=== PATIENT | female | born 1960 | race Caucasian/White ===

== ENCOUNTER 2018-11-22 07:00 | Inpatient (IN) ==
--- NOTE | 2018-11-15 14:29 | EKG Report ---
Test Performed on : 11/15/2018 2:08:26 PM Test Reason : PAT Blood Pressure : / mmHG Vent. Rate : 084 BPM Atrial Rate : 084 BPM P-R Int : 164 ms QRS Dur : 092 ms QT Int : 372 ms P-R-T Axes : 056 064 071 degrees QTc Int : 439 ms Normal sinus rhythm. Normal ECG No previous ECGs available Confirmed by Brock WADE, Denis ([id number]) on 11/16/2018 8:42:14 AM
[2018-11-15 14:35] LABS: BASO# 0.02 X1000 (0.0-0.2); BASO% 0.2 % (0.0-0.8); HEMOGLOBIN 14.7 g/dL (12.0-16.0); IMM GRAN# 0.02 X1000 (0.0-0.04); IMM GRAN% 0.2 % (0.0-0.5); LYMPH# 2.68 X1000 (1.2-3.4); LYMPH% 27.8 % (20.5-51.1); MCH 30.8 PG (27-31); MCHC 33.4 g/dL (33-37); MCV 92.2 FL (81-99); MONO% 7.3 % (1.7-9.3); NEUT# 6.22 X1000 (1.4-6.5); NEUT% 64.5 % (42.2-75.2); PLT 325 X1000 (130-400); RBC 4.77 XMIL (4.2-5.4); RDW 13.6 % (11.5-14.5); WBC 9.64 X1000 (4.8-10.8)
[2018-11-15 14:53] LABS: HEMOGLOBIN A1C 4.9 % (4.8-6.0)
[2018-11-15 15:03] LABS: AGAP 12; BUN 13 mg/dL (8-22); C REACTIVE PROT QUANT 10.31 mg/L (0.00-5.00); CALCIUM 9.4 mg/dL (8.8-10.2); CHLORIDE 99 mmol/L (98-107); COSMO 279; CREATININE 0.7 mg/dL (0.5-0.9); ESTIMATED GFR > 60; GLUCOSE 98 mg/dL (70-104); POTASSIUM 3.7 mmol/L (3.5-5.1); SODIUM 140 mmol/L (136-145); TCO2 29 mmol/L (25-35)
[2018-11-22] MEDS ORDERED: LR 1,000 ML ONE (09:10)
[2018-11-22] MEDS ORDERED: REGLAN ONE (09:10)
[2018-11-22] MEDS ORDERED: PEPCID ONE (09:10)
[2018-11-22] MEDS ORDERED: VANCOMYCIN 1 GM/NS 1 GM/250 ML IVPB ONE (09:10)
[2018-11-22] MEDS ORDERED: VERSED ONE (10:04)
[2018-11-22] MEDS ORDERED: XYLOCAINE-MPF 2% ONE (10:04)
[2018-11-22] MEDS ORDERED: FENTANYL ONE ×2 (10:05→12:51)
[2018-11-22] MEDS ORDERED: DIPRIVAN 1% ONE (10:05)
[2018-11-22] MEDS ORDERED: QUELICIN (DOSE) ONE (10:26)
[2018-11-22] MEDS ORDERED: NEURONTIN PO ONE (10:45)
[2018-11-22 11:52] LABS: AGAP 12; BUN 11 mg/dL (8-22); CALCIUM 8.7 mg/dL (8.8-10.2); CHLORIDE 103 mmol/L (98-107); COSMO 282; CREATININE 0.5 mg/dL (0.5-0.9); ESTIMATED GFR > 60; GLUCOSE 97 mg/dL (70-104); POTASSIUM 3.5 mmol/L (3.5-5.1); PREALBUMIN 24.4 mg/dL (20-40); SODIUM 142 mmol/L (136-145); TCO2 27 mmol/L (25-35)
[2018-11-22 11:53] LABS: TSH 2.62 uIUmL (0.27-4.20); VITAMIN D 25 HYDROXY 51.5 NG/DL
[2018-11-22] MEDS ORDERED: MORPHINE ONE (13:56)
[2018-11-22] MEDS ORDERED: SENOKOT PO PRN (14:34)
[2018-11-22] MEDS ORDERED: ZOFRAN IV PRN (14:34)
--- NOTE | 2018-11-22 16:15 | OPERATIVE NOTE ---
PROCEDURE DATE: 11/22/2018 POSTOPERATIVE DIAGNOSIS: 1. Left Charcot midfoot with forefoot abduction and pes planus deformity. 2. Left midfoot malunion from previous surgery. 3. Left equinus contracture. 4. Left hardware related pain. POSTOPERATIVE DIAGNOSES: 1. Left Charcot midfoot with forefoot abduction and pes planus deformity. 2. Left midfoot malunion from previous surgery. 3. Left equinus contracture. 4. Left hardware related pain. PROCEDURES: 1. Left hardware removal deep from the mid foot. 2. Left hardware removal deep from the great toe metatarsophalangeal joint. 3. Left partial excision mid tarsal bones. 4. Left multiple tarsal fusions with midfoot osteotomy. 5. Left tendo-Achilles lengthening. 6. Subtalar fusion. SURGEON: Serge Arana MD. PAINT ROLLER WINDER: NIRANJAN Last, who was an integral part of the case, helping with all aspects of the case, and helping to increase our OR efficiency greatly. ANESTHESIA: General with LMA. TOURNIQUET TIME: About 130 minutes. IMPLANTS: 1. [employer] beams. 2. [employer] augment. DISPOSITION: To PACU, hemodynamically stable. INDICATION FOR PROCEDURE: Ms. Arnold is a 58-year-old female, whom I have seen in the clinic for evaluation of this left foot. Unfortunately, she has had a malunion after a previous attempt to correct her Charcot midfoot deformity and now she was left in an abducted forefoot position and a pes planus position with a rocker bottom deformity in the sagittal plane. I discussed with her about operative intervention. She expressed understanding and wished to proceed. DESCRIPTION OF PROCEDURE: Ms. Arnold was identified in the preoperative holding area. The left foot was marked as the correct surgical site. She was then wheeled to the operating room and placed supine on the operating table. All bony prominences well padded. She was induced under general anesthesia. LMA was placed. Tourniquet was placed on the left leg. Left lower extremity was then prepped with chlorhexidine, gluconate scrub, and then ChloraPrep, draped in normal sterile fashion. Surgical pause was performed. We identified the correct patient, correct side, and the correct procedure. Preop antibiotics were given. Esmarch was used to exsanguinate the left lower extremity and tourniquet was inflated to 300 mmHg. We initially started with removing the hardware from the midfoot. I made an incision over the first TMT joint. Dissection was carried down. We dissected all the way down and then found the screw head and removed it with a screw telephone directory distributor driver. We did this actually with all 5 tarsometatarsal joints. We ended up having to make 5 incisions to take each 1 of them out, but we were able to get all of the hardware out of the midfoot so that we could correct her deformity. After this, I then made a medial incision over the medial and plantar deformity. Dissection was carried down all the way to bone. We elevated full-thickness soft tissue flaps dorsally and plantarly. There was a very large deformity that was there. We came proximally to the TN joint and distally passed the fused TMT joint. After we had made those large flaps, I then used some K- wires to get my initial position for my cut and that was in the transverse plane. I then made my cuts. It was a biplanar cut with the apex dorsal and apex lateral. After I completed the cut, I was able to get all of that bone out and it closed down very nicely and restored Meary's angle and also restored the neutral position of the forefoot. I then used a Hintermann distractor and prepared my talonavicular joint and then drilled it so we could get a good fusion there. We then came lateral and I made a sinus tarsi approach to the subtalar joint. I then denuded all of the cartilage off the subtalar joint and prepared it for fusion as well. So, we partially excised all that midfoot bone so that we could swing her foot around. We closed the osteotomy down so we could get multiple midfoot fusions across that area and restore her more anatomic plantigrade position. I did have to make an incision over the first MTP joint dorsally and removed several screws out of her dorsal plate and that was the hardware removal from the great toe. That allowed me to get position on that 1st metatarsal but we went plantarly since she was fused at the MTP joint and the IP joint of the great toe. Once I got a really good position with that pin, I was able to drive it into the talus and had really good position there. AP ankle showed that we did have enough room medially, we were not going to break out, and so that actually looked really good. After I got that position, we temporarily pinned it through the medial wound and then I drilled and put a solid beam of that 1 and that stabilized my medial column and got my overall position back. I then made a dorsal incision over the 2nd MTP joint, exposed that metatarsal head, and got it ready for guidewire. I realized that wire was going to go into the calcaneus and so I backed it up and at this point, I went ahead and got my guidewire in for my subtalar fusion. Fluoroscopic imaging showed it was in good position and Leigh heel view showed that we were in good position there as well. Then I used a 7.0 cannulated screw for my calcar subtalar fusion. After that, I was then able to drive that 2nd metatarsal guidewire all the way into the calcaneus and it went right at the sustentacular. I then put a solid beam in that one as well. I then came off the 3rd metatarsal laterally in the midfoot area, at 1 of the previous incisions we used to take out one of her midfoot screws, and then put another screw there. We did use a cannulated screw on that on. So overall, I felt our position looked really good. We got the multiple midfoot fusion. We partially excised some of the tarsal bones in the midfoot to close that down. We did our subtalar fusion, removed the hardware, and we got everything positioned just right. She was pretty tight in equinus and so through three stab incisions, I was able to do a tendo- Achilles lengthening and that got her position back, to get her back to neutral dorsiflexion. Overall I felt the foot was in a good position. It was not abducted and the area that was very prominent medially was not anymore. She did have a little bit of an arch. We had to put the tourniquet down in the middle of the case at 130 minutes. She had good blood flow return to the toes. We then closed everything with 0 Vicryl, 2-0 Vicryl for the subcutaneous, and jesus and sutures on the skin. Adaptic, 4 x 4s, ABD, soft roll, and posterior splint were applied. When the tourniquet was let down, like I said, she had good capillary refill to the toes. She was then awoke from general anesthesia, moved to her own bed, and taken to the PACU in stable condition. Postop she will be nonweightbearing to the left lower extremity. She will be admitted today and I will see her in the morning. cc: Serge Arana MD MTDD
[2018-11-22] MEDS ORDERED: ASTELIN NASAL SPRAY NAS SCH (18:28)
[2018-11-22] MEDS ORDERED: DULCOLAX PO PRN (18:28)
[2018-11-22] MEDS ORDERED: COMBIVENT RESPIMAT INHALER INH PRN (18:28)
[2018-11-22] MEDS ORDERED: EXCEDRIN MIGRAINE PO PRN (18:28)
[2018-11-22] MEDS ORDERED: NEURONTIN PO SCH (18:30)
[2018-11-22] MEDS: MORPHINE IV PRN (19:06)
[2018-11-22] MEDS: ELAVIL PO SCH (22:46)
[2018-11-22] MEDS: NUCYNTA PO SCH (22:46)
[2018-11-22] MEDS: PERIDEX MT SCH (22:47)
[2018-11-22] MEDS: NEURONTIN PO SCH (22:47)
[2018-11-23] MEDS: OXY IR PO PRN ×2 (04:38→17:51)
[2018-11-23] MEDS: LOVENOX SUBQ SCH ×2 (04:39→07:53)
[2018-11-23] MEDS ORDERED: PAXIL PO SCH (09:00)
[2018-11-23] MEDS: NUCYNTA PO SCH (11:42)
[2018-11-23] MEDS: NEURONTIN PO SCH ×5 (11:42→16:13)
[2018-11-23] MEDS: PERIDEX MT SCH (11:44)
[2018-11-23] MEDS: TENORMIN PO SCH (11:44)
[2018-11-23] MEDS: VITAMIN D PO SCH (11:45)
[2018-11-23] MEDS: DYAZIDE PO SCH (11:45)
[2018-11-23] MEDS: PREMARIN PO SCH (11:46)
[2018-11-23] MEDS: CYMBALTA PO SCH (11:46)
[2018-11-23] MEDS: MICRO-K PO SCH (11:47)
[2018-11-23] MEDS: SINGULAIR PO SCH (11:47)
[2018-11-23] MEDS: PATIENT'S OWN MED PO SCH ×2 (11:49→11:50)
[2018-11-23] MEDS: VITAMIN B-12 PO SCH (11:49)
--- NOTE | 2018-11-23 13:29 | ORTHOPAEDICS PROGRESS NOTE ---
DATE: 11/23/2018 SUBJECTIVE: Ms. Arnold is having some pain this morning. She has her CPAP machine on. She was able to get some sleep last night. OBJECTIVE: Left lower extremity exam: She has good capillary refill to all the toes. Splint is clean, dry, and intact. Overall position of the foot in the splint looks really good. ASSESSMENT: Status post left Charcot midfoot reconstruction. PLAN: Ms. Arnold will be here over the weekend. She is nonweightbearing left lower extremity. She will need to elevate the leg as much as possible. support services manager will be involved for discharge planning. We will plan on getting her to rehab early this next week. cc: Serge Arana MD
[2018-11-23] MEDS: MORPHINE IV PRN (15:02)
[2018-11-23] MEDS: PAXIL PO SCH (16:12)
[2018-11-23] MEDS: ATIVAN IV PRN (18:37)
[2018-11-24] MEDS: ELAVIL PO SCH ×2 (00:15→23:56)
[2018-11-24] MEDS: NEURONTIN PO SCH ×4 (00:15→23:55)
[2018-11-24] MEDS: NUCYNTA PO SCH ×3 (00:16→23:55)
[2018-11-24] MEDS: PERIDEX MT SCH ×3 (00:19→23:56)
[2018-11-24] MEDS: ATIVAN IV PRN (05:48)
[2018-11-24 06:47] LABS: URINE SOURCE CATH
[2018-11-24 06:49] LABS: BILIRUBIN URINE NEGATIVE (NEGATIVE); BLOOD URINE NEGATIVE (NEGATIVE); COLOR YELLOW; GLUCOSE URINE NEGATIVE (NEGATIVE); KETONE URINE TRACE mg/dL (NEGATIVE); LEUKOCYTES URINE NEGATIVE (NEGATIVE); NITRITE URINE NEGATIVE (NEGATIVE); PH URINE 8.5; PROTEIN URINE NEGATIVE (NEGATIVE); SP GRAVITY URINE 1.001; TURBIDITY URINE CLEAR (CLEAR); UROBILINOGEN URINE NORMAL (NORMAL)
[2018-11-24] MEDS: LOVENOX SUBQ SCH (06:49)
[2018-11-24 06:51] LABS: UR EPITHELIAL CELLS <10 /HPF (<10); URINE BACTERIA NEGATIVE /HPF; URINE RBC <10 /HPF (<10); URINE WBC <10 /HPF (<10)
[2018-11-24] MEDS: CYMBALTA PO SCH (11:26)
[2018-11-24] MEDS: VITAMIN D PO SCH (11:27)
[2018-11-24] MEDS: TENORMIN PO SCH (11:27)
[2018-11-24] MEDS: MICRO-K PO SCH (11:27)
[2018-11-24] MEDS: PAXIL PO SCH (11:28)
[2018-11-24] MEDS: SINGULAIR PO SCH (11:28)
[2018-11-24] MEDS: VITAMIN B-12 PO SCH (11:28)
[2018-11-24] MEDS: DYAZIDE PO SCH (11:28)
[2018-11-24] MEDS: PREMARIN PO SCH (11:28)
[2018-11-24 11:34] LABS: URINE SOURCE CATH
[2018-11-24 11:39] LABS: BILIRUBIN URINE NEGATIVE (NEGATIVE); BLOOD URINE NEGATIVE (NEGATIVE); COLOR YELLOW; GLUCOSE URINE NEGATIVE (NEGATIVE); KETONE URINE 20 mg/dL (NEGATIVE); LEUKOCYTES URINE NEGATIVE (NEGATIVE); NITRITE URINE NEGATIVE (NEGATIVE); PH URINE 6.5; PROTEIN URINE NEGATIVE (NEGATIVE); TURBIDITY URINE CLEAR (CLEAR); UROBILINOGEN URINE NORMAL (NORMAL)
[2018-11-24 11:41] LABS: UR EPITHELIAL CELLS <10 /HPF (<10); URINE BACTERIA 2+ /HPF; URINE RBC <10 /HPF (<10); URINE WBC <10 /HPF (<10)
--- NOTE | 2018-11-24 13:33 | ORTHOPAEDICS PROGRESS NOTE ---
DATE: 11/24/2018 Ms. Arnold is seen status post Charcot foot surgery for Dr. Arana. Presently, she is afebrile with stable vital signs. She has had prior 2 intermittent catheterizations for urinary retention. We will make arrangements to go ahead and place a Huynh catheter. Her bandage is clean and dry. She is stable at the present time. She is pending discharge or a rehabilitation placement on Monday. cc: MD Serge Grady MD
[2018-11-24] MEDS: PATIENT'S OWN MED PO SCH ×2 (18:15→18:16)
[2018-11-25] MEDS: LOVENOX SUBQ SCH (07:41)
[2018-11-25] MEDS: MICRO-K PO SCH (10:37)
[2018-11-25] MEDS: NEURONTIN PO SCH ×3 (10:37→22:20)
[2018-11-25] MEDS: TENORMIN PO SCH (10:37)
[2018-11-25] MEDS: DYAZIDE PO SCH (10:37)
[2018-11-25] MEDS: VITAMIN D PO SCH (10:39)
[2018-11-25] MEDS: PREMARIN PO SCH (10:39)
[2018-11-25] MEDS: PAXIL PO SCH (10:39)
[2018-11-25] MEDS: CYMBALTA PO SCH (10:40)
[2018-11-25] MEDS: NUCYNTA PO SCH ×2 (10:40→22:34)
[2018-11-25] MEDS: SINGULAIR PO SCH (10:40)
[2018-11-25] MEDS: VITAMIN B-12 PO SCH (10:40)
[2018-11-25] MEDS: PATIENT'S OWN MED PO SCH ×2 (10:41→10:47)
[2018-11-25] MEDS: PERIDEX MT SCH ×2 (10:41→22:21)
--- NOTE | 2018-11-25 13:51 | ORTHOPAEDICS PROGRESS NOTE ---
DATE: 11/25/2018 SUBJECTIVE: Ms. Arnold is seen status post Charcot procedure of her foot. Her bandage is clean and dry. There is good capillary refill. She is much more alert and pleasant today. She states she feels like the IV morphine caused her to act up and have some disorientation. She has requested the IV morphine be withdrawn her removed from her order set. We have arranged that today. OBJECTIVE: She is stable from a vital sign standpoint. There is mild small temperature to 100.3 last night but otherwise unremarkable. We will plan on mobilizing her tomorrow. cc: MD Serge Grady MD
[2018-11-25] MEDS: ELAVIL PO SCH (22:20)
[2018-11-26] MEDS: LOVENOX SUBQ SCH (05:21)
--- NOTE | 2018-11-26 10:06 | ORTHOPAEDICS PROGRESS NOTE ---
DATE: 11/26/2018 SUBJECTIVE: Ms. Arnold is lying in bed. Overall pain seems well controlled. OBJECTIVE: Left lower extremity exam, splint is clean, dry, and intact. She has good capillary refill to all the toes. She is able to move the toes a little bit, not a lot. ASSESSMENT: Status post left Charcot midfoot reconstruction. PLAN: We will discontinue the Huynh catheter today that was placed over the weekend secondary to urinary retention. She does have some Klebsiella in her urine so we are going to send her to rehab on Bactrim. We will get social work instructor involved today for rehab placement. If she has a place then I am okay with her being discharged today and then I will see her in 1 week in clinic. She is strict nonweightbearing left lower extremity. cc: Serge Arana MD
--- NOTE | 2018-11-26 10:37 | DISCHARGE SUMMARY ---
ADMISSION DATE: 11/22/2018 DISCHARGE DATE: 11/26/2018 ADMITTING DIAGNOSES: 1. Left Charcot midfoot. 2. Left midfoot malunion. 3. Left equinus contracture. 4. Left heart related pain. 5. Peripheral neuropathy. DISCHARGE DIAGNOSES: 1. Left Charcot midfoot. 2. Left midfoot malunion. 3. Left equinus contracture. 4. Left heart related pain. 5. Peripheral neuropathy. PROCEDURES: 1. On 11/22/2018, Dr. Arana performed a left heart removal. 2. Left partial excision mid tarsal bones. 3. Left multiple tarsal fusions and midfoot osteotomies. 4. Left tendo-Achilles lengthening, [*]. HOSPITAL COURSE: Ms. Arnold is a 58-year-old female whom Dr. Arana has been following in clinic for evaluation of her left foot. Unfortunately, she had a malunion after previous surgery. Unfortunately, she had a previous malunion in attempt to correct the left Charcot midfoot deformity. That was giving her a lot of pain and she developed a rocker bottom. She had gotten a wound over there. She has been using coquille boots for a long time, but unfortunately still got a wound on that rocker bottom deformity. She has had a lot done with this foot and it has been giving her a lot of trouble. Dr. Arana and her discussed the Charcot reconstruction. The patient did wish to proceed with that. Dr. Arana explained all risks and benefits with the patient. The wound did heal and so it was decided it was time to proceed with surgery. She was taken to the operating room where satisfactory anesthesia was obtained. She tolerated the procedure well and was transferred to recovery. After satisfactory recovery, she was transferred to [address] [place] [address]. For the most part, she has had a pretty uneventful hospital course. Unfortunately, it looks like she did have some urinary retention postop. It was decided on postop day [address] Huynh catheter. The original culture taken at time of Huynh insertion did grow out Klebsiella pneumoniae. We are going to discharge her rehab on Bactrim, which the Klebsiella sensitive to. Other than that, she has not had any issues. PHYSICAL EXAMINATION: Her current vital signs temperature 98 degrees, pulse is 71, respirations 20, blood pressure 107/54, and she is 95% on room air, but does require CPAP at night. Her pain has been tolerable. She did have some confusion over the weekend on the morphine, but since has been discontinued. She is feeling more like herself. We will have them remove the catheter today. As long as she can void without any issues, we will plan to get her to rehab today. Again, we are going to send her home on that Bactrim to cover the Klebsiella for the UTI. She has had difficulty ambulating. She is nonweightbearing to this left lower extremity. She will be nonweightbearing for about 2 months. She does not have a lot to help at home. So, we do feel that a rehab stay would be greatly beneficial to her. She is definitely a hot fall risk. All her laboratory data does look good. We are going to plan on getting her out here today. DISCHARGE MEDICATIONS: 1. Excedrin migraine. 2. Elavil. 3. Tenormin. 4. Vitamin D. 5. Vitamin B12. 6. Cymbalta. 7. Lovenox 40 mg subcutaneous every 24 hours. 8. Premarin 1.25 mg p.o. daily. 9. Neurontin 1200 mg p.o. b.i.d. 10. Neurontin 600 mg p.o. daily at noon. 11. Singular 10 mg p.o. daily. 12. Percocet 5 mg p.o. every 6 hours as needed for pain. 13. Paxil 60 mg p.o. daily. 14. Biotin 64702 mcg 1 daily. 15. Senokot 1 p.o. b.i.d. p.r.n. constipation. 16. Micro-K 8 mEq p.o. daily. 17. Nucynta 100 mg p.o. daily. 18. Dyazide 1 each p.o. daily. 19. Combivent inhaler as needed. 20. Bactrim DS 1 tab p.o. b.i.d. x 7 days. DISCHARGE DISPOSITION: Ms. Arnold is being discharged to a rehab facility so she can continue to work on mobilization and transferring without putting weight on this left lower extremity. She does not have much support at home. She will be in a surgical splint and she will be nonweightbearing to the left lower extremity. We will leave the surgical splint in place until she follows with Dr. Arana. We want to see her in a week in the office. She will continue the Lovenox until she is weightbearing. Again, we expect it will be a good 2 months before she weight- bears. We will do Percocet for pain control. We are going to do Bactrim DS to cover that UTI. If there are any questions or concerns, please call the office. Dictated by NIRANJAN Last for Serge Arana MD cc: NIRANJAN Last MD
[2018-11-26] MEDS: TENORMIN PO SCH (10:52)
[2018-11-26] MEDS: PREMARIN PO SCH (10:52)
[2018-11-26] MEDS: NEURONTIN PO SCH (10:53)
[2018-11-26] MEDS: PAXIL PO SCH (10:53)
[2018-11-26] MEDS: SINGULAIR PO SCH (10:53)
[2018-11-26] MEDS: CYMBALTA PO SCH (10:54)
[2018-11-26] MEDS: NUCYNTA PO SCH (10:54)
[2018-11-26] MEDS: VITAMIN B-12 PO SCH (10:55)
[2018-11-26] MEDS: MICRO-K PO SCH (10:55)
[2018-11-26] MEDS: PERIDEX MT SCH (10:55)
[2018-11-26] MEDS: DYAZIDE PO SCH (10:55)
[2018-11-26] MEDS: VITAMIN D PO SCH (10:55)
[2018-11-26] MEDS: PATIENT'S OWN MED PO SCH ×2 (12:52→12:53)
[2018-11-26 14:37] VITALS: BP 135/71
== END 2018-11-26 16:37 | DRG 504 ==
LOC: EDSTATUS 07:00 → SURHOLD 08:48 → 4N 11:45
PROVIDERS: ADMIT Orthopaedic Surgery; ATTEND Orthopaedic Surgery
CPT/HCPCS: 76000; 80048; 81001; 82306; 83036; 83970; 84134; 84443; 85025; 85651; 86140; 87077; 87088; 87186; 93005; 93010; 94761; 94799; 97162; 97530; A9270; J0330; J1650; J2060; J2250; J2270; J3010; J3370; J7120